=== PATIENT | male | born 1960 ===

== ENCOUNTER 2018-03-08 12:20 | Emergency (ER) | payer OTHER, SELFPAY ==
[2018-03-08 12:34] VITALS: BP 136/82; PULSE 101; RESP 19; TEMP 37.1; O2SAT 95; BMI 37.3
--- NOTE | 2018-03-08 12:36 | ED_ITS ---
HPI - Arrhythmia/Palpitations <MAYA Case - Last Filed: 03/08/18 22:25> General Chief Complaint: Arrhythmia/Palpitations Stated Complaint: THINKS IN AFIB Time Seen by Provider: 03/08/18 12:36 Source: patient Mode of arrival: ambulatory Limitations: no limitations History of Present Illness HPI narrative: 57-year-old male with history of a fib and former smoker here for complaint of having sensation of being in AFib earlier today. He denies any chest pain or shortness of breath. He states he did feel little lightheaded at that time frame. He states that his symptoms have resolved since coming to the emergency room. He denies any other concerns or complaints at this time. He states that he was using Valsalva maneuvers to try and relieve his AFib. he states he feels much better at this time he does hours ago home at this time. Related Data Home Medications Medication Instructions Recorded Confirmed ALBUTEROL SULFATE (PROAIR HFA) puff INH BID #0 06/27/11 montelukast [Singulair] QDAY #0 02/10/16 pravastatin QDAY #0 02/10/16 oxymetazoline [Afrin 1 spray INTRANASAL Q12HP PRN #0 07/30/17 (oxymetazoline)] tamsulosin [Flomax] 0.4 mg PO QDAY #0 07/30/17 testosterone cypionate 50 mg IM #0 07/30/17 [Depo-Testosterone] Previous Rx's Medication Instructions Recorded aspirin 81 mg PO BID #60 08/13/17 hydroxyzine pamoate [Vistaril] 25 mg PO Q4HP PRN #60 cap 08/13/17 oxycodone 5 mg PO Q4HP PRN #60 tab 08/13/17 Allergies Allergy/AdvReac Type Severity Reaction Status Date / Time carrot Allergy Severe RAW Unverified 09/26/17 12:59 CARROTS - BLANCED IS O.K. - THROAT SWELLING etodolac [ETODOLAC] AdvReac Mild GI UPSET Unverified 09/26/17 12:59 DRIED RIGOBERTO Allergy Unknown Uncoded 09/26/17 12:59 GOKUL FRUIT Allergy Unknown Uncoded 09/26/17 12:59 Review of Systems <MAYA Case - Last Filed: 03/08/18 22:25> Constitutional Denies chills, Denies fatigue, Denies fever(s), Denies lethargy and Denies weakness Eyes Denies change in vision, Denies eye discharge, Denies irritation and Denies loss of vision ENT Ears, Nose, Mouth, and Throat: Denies change in voice, Denies neck pain and Denies sore throat Cardiovascular Denies dyspnea and Denies dyspnea on exertion Comments: Feels like he was in AFib earlier today Respiratory Denies cough, Denies dyspnea, Denies dyspnea on exertion and Denies wheezing Gastrointestinal Gastrointestinal: Denies abdominal pain, Denies change in bowel habits, Denies diarrhea, Denies nausea and Denies vomiting Genitourinary Denies hematuria, Denies flank pain, Denies urinary incontinence and Denies urinary urgency Musculoskeletal Denies neck pain Integumentary/Breasts Denies pruritus, Denies erythema, Denies rash and Denies wounds Neurologic Denies confusion, Denies loss of vision and Denies weakness Psychiatric Denies anxiety, Denies confusion, Denies depression, Denies homicidal ideation and Denies suicidal ideation Endocrine Denies fatigue and Denies flushing Hematologic/Lymphatic Denies easy bruising Allergic/Immunologic Denies wheezing Exam <MAYA Case - Last Filed: 03/08/18 22:25> Initial Vital Signs Initial Vital Signs: Vital Signs Temperature 98.8 F 03/08/18 12:34 Pulse Rate 101 H 03/08/18 12:34 Respiratory Rate 19 03/08/18 12:34 Blood Pressure 136/82 03/08/18 12:34 Pulse Oximetry 95 03/08/18 12:34 Const General: cooperative and well developed Nutritional Appearance: well nourished Orientation: alert, awake, oriented x3 and not confused [facility] Mouth: oral mucosae normal and oropharynx normal Eyes Conjunctivae: conjunctivae normal Sclera: sclerae normal Pupils: PERRL EOM: EOM intact bilaterally Resp Effort & Inspection: normal respiratory effort, able to speak in complete sentences, no respiratory distress and no use of accessory muscles Auscultation: clear to auscultation bilaterally, no rales, no rhonchi and no wheezes Cardio Rate: regular rate Rhythm: regular rhythm Heart Sounds: no click, no gallops, no murmurs and no rubs Pulses: normal peripheral pulses Skin General: no rashes or lesions noted, No jaundice and No petechiae Neuro General: alert, oriented x3, gait normal and no focal motor deficits Speech: speech normal <Bob Bejarano DO - Last Filed: 03/09/18 07:16> Initial Vital Signs Initial Vital Signs: Vital Signs Temperature 98.8 F 03/08/18 12:34 Pulse Rate 101 H 03/08/18 12:34 Respiratory Rate 19 03/08/18 12:34 Blood Pressure 136/82 03/08/18 12:34 Pulse Oximetry 95 03/08/18 12:34 Course <MAYA Case - Last Filed: 03/08/18 22:25> Vital Signs - 8 hr 03/08/18 12:34 Temperature 98.8 F Pulse Rate 101 H Respiratory Rate 19 Blood Pressure 136/82 Pulse Oximetry 95 <Bob Bejarano DO - Last Filed: 03/09/18 07:16> Vital Signs - 8 hr 03/08/18 12:34 Temperature 98.8 F Pulse Rate 101 H Respiratory Rate 19 Blood Pressure 136/82 Pulse Oximetry 95 MDM - Arrhythmia/Palpitations <MAYA Case - Last Filed: 03/08/18 22:25> ECG Data Interpretation: EKG shows sinus rhythm with no ST elevation or depression. CT does show right bundle branch block. Ventricular rate of 95. Pr interval of 179. QRS duration of 158. QT of 375. EKG is consistent with prior EKG dated 07/16/2017 [facility] Narrative Medical decision making narrative: patient states he is feeling much better right now and has no symptoms. He does not desire to stay in the emergency room. Offered workup consisting of laboratories and chest x-ray. Patient States he does not desire to have workup at this time and would like to leave. Recommended obtaining workup to ensure there are no other complications. Patient denied. patient is encouraged to follow up with primary care provider soon for re-evaluation. Discussed him returning to the emergency room for any return of symptoms or worsening symptoms. Patient agreed. Discharge Plan Departure Patient Disposition: Left Against Medical Advice Clinical Impression: Heart palpitations Discharge Date/Time: 03/08/18 13:19 Interventions: ED Discharge Assessment Last Done: 03/08/18 13:18 Instructions: DI for Atrial Fibrillation Activity Restrictions/Additional Instructions: EKG in the emergency room today is consistent with prior EKGs. No AFib is seen. Follow up with her primary care provider in the next couple days for re- evaluation. For any return of symptoms or worsening symptoms return to the emergency room. Prescriptions: No Action ALBUTEROL SULFATE (PROAIR HFA) INH BID Qty: 0 RF: 0 pravastatin 40 MG tablet QDAY Qty: 0 RF: 0 montelukast [Singulair] 10 MG tablet QDAY Qty: 0 RF: 0 tamsulosin [Flomax] 0.4 MG capsule,extended release 24hr 0.4 mg PO QDAY Qty: 0 RF: 0 testosterone cypionate [Depo-Testosterone] 100 MG/1 ML oil 50 mg IM Qty: 0 RF: 0 oxymetazoline [Afrin (oxymetazoline)] 0.05 % spray,non-aerosol 1 spray Intranasal Q12HP PRNQty: 0 RF: 0 aspirin 81 MG tablet,delayed release (DR/EC) 81 mg PO BID Qty: 60 RF: 0 oxycodone 5 MG tablet 5 mg PO Q4HP PRNQty: 60 RF: 0 hydroxyzine pamoate [Vistaril] 25 MG capsule 25 mg PO Q4HP PRNQty: 60 RF: 0 Referrals: Fermin Bullock MD [Primary Care Provider] - Stand Alone Forms: Against Medical Advice <Bob Bejarano DO - Last Filed: 03/09/18 07:16> Cosign ED Attending Miesha Attestation: I was immediately available in the department for consultation. Documentation has been reviewed. I agree with assessment and plan.
[2018-03-08 13:18] VITALS: BP 112/69; PULSE 102; RESP 17; O2SAT 96
== END 2018-03-08 13:19 | disposition left against medical advice (07) ==
PROVIDERS: Emergency Provider Nurse Practitioner Family; Family Provider Family Medicine; PCP Family Medicine
DX: R00.2 Palpitations (principal)
CPT/HCPCS: 93005; 99282; 99283

== ENCOUNTER → 2019-03-07 15:07 | Outpatient (CLI) | payer OTHER, SELFPAY ==
--- NOTE | 2019-03-07 | DI.CT.S_ITS ---
PROCEDURE: CT CHEST W CON INDICATIONS: Chronic sinusitis, unspecified Cough TECHNIQUE: After the administration of intravenous contrast, 5 mm thick sections acquired from the pulmonary apices to the posterior costophrenic angles. 1 mm axial lung, 5 mm thick coronal and sagittal reformats and 7 mm axial MIP were acquired. For radiation dose reduction, the following was used: automated exposure control, adjustment of mA and/or kV according to patient size. COMPARISON: [facility], CT, PE STUDY (CTA CHEST), 04/05/2009, 15:14. [facility], CT, ABDOMEN/PELVIS WITH CONTRAST, 10/10/2017, 16:31. FINDINGS: Image quality: Excellent. Lungs and pleura: No acute air space opacities. There is mild lung scarring at the right midlung in the area of prior documented pneumonia from 04/05/09. No active pneumonia is currently present. No pleural effusions or pneumothorax. Central and peripheral airways are patent and normal in caliber. Mediastinum: Heart size is normal. No pericardial effusion. No mediastinal or hilar adenopathy by size criteria. Thoracic aorta and central pulmonary arteries are normal in size. Esophagus is normal in caliber. No hiatal hernia. Bones and chest wall: No suspicious bony lesions. No vertebral body compression fractures. No axillary or supraclavicular adenopathy by size criteria. Thyroid gland may contain a 4 mm radiodensity within the right thyroid lobe laterally. Abdomen: Visualized upper abdominal solid organs appear normal. Upper abdominal bowel loops are normal in caliber. IMPRESSION: Mild lung scarring in an area of prior pneumonia from March 2009 this is located within the lateral segment right middle lobe. No lung mass lesion, endobronchial inflammation or mass, or active pneumonia is found. Overall, a definite source of cough is not seen. Dictated by: Denton Diaz M.D. on 03/07/2019 at 16:51 Approved by: Denton Diaz M.D. on 03/07/2019 at 16:56
--- NOTE | 2019-03-07 | DI.CT.S_ITS ---
PROCEDURE: CT SINUS SCREEN WO CON INDICATIONS: Chronic sinusitis, unspecified Cough TECHNIQUE: Noncontrast 3.0 mm axial images acquired from the frontal sinuses to the mid-sella, with coronal and sagittal reformats. For radiation dose reduction, the following was used: automated exposure control, adjustment of mA and/or kV according to patient size. COMPARISON: None. FINDINGS: Image quality: There is moderate rightward Maxillary Sinuses: No bony remodeling or destruction. Sinuses are clear. Ethmoid Air Cells: No bony remodeling or destruction. Sinuses are clear. Sphenoid Sinuses: No bony remodeling or destruction. Sinuses are clear. Frontal Sinuses: No bony remodeling or destruction. Sinuses are clear. Ostiomeatal Complexes: Ostiomeatal complexes are patent, yet they are constitutionally narrowed with bilateral infraorbital air cells are. Miscellaneous: Visualized intra-orbital contents are normal. No dean bullosa or paradoxical turbinate curvature. There is moderate leftward nasal septal deviation. IMPRESSION: No significant active paranasal sinus disease is seen. Moderate leftward nasal septal deviation. Narrowed ostiomeatal complexes. Dictated by: Zackery Dc M.D. on 03/07/2019 at 16:11 Approved by: Zackery Dc M.D. on 03/07/2019 at 16:11
== END ==
PROVIDERS: Family Provider Family Medicine; PCP Family Medicine; Visit Provider Allergy & Immunology
DX: J32.9 Chronic sinusitis, unspecified (principal); R05 Cough; J34.2 Deviated nasal septum; J98.4 Other disorders of lung
CPT/HCPCS: 70486; 71260

== ENCOUNTER 2019-12-11 15:21 | Emergency (ER) | payer BC, SELFPAY ==
[2019-12-11 15:26] VITALS: BP 111/78; PULSE 105; RESP 18; TEMP 35.8; O2SAT 96; BMI 41.8
--- NOTE | 2019-12-11 15:31 | DI.RAD.S_ITS ---
PROCEDURE: XR CHEST 1V INDICATIONS: chest pain TECHNIQUE: One view of the chest was acquired. COMPARISON: [facility], , CHEST 2 VIEW, 09/18/2017, 16:06. FINDINGS: Surgical changes and devices: None. Lungs and pleura: Lungs are clear. No pleural effusions or pneumothorax. Mediastinum: Mediastinal contours appear normal. Heart size is normal. Bones and chest wall: No suspicious bony lesions. Overlying soft tissues appear unremarkable. IMPRESSION: No acute pulmonary process. Dictated by: Ashlee Stallings M.D. on 12/11/2019 at 16:10 Approved by: Ashlee Stallings M.D. on 12/11/2019 at 16:10
--- NOTE | 2019-12-11 16:00 | PC.NURSE ---
Pt refused IV
--- NOTE | 2019-12-11 17:06 | ED_ITS ---
HPI - Arrhythmia/Palpitations General Chief Complaint: Arrhythmia/Palpitations Stated Complaint: states AFIB about an hour Time Seen by Provider: 12/11/19 16:53 Source: patient Mode of arrival: Ambulatory History of Present Illness HPI narrative: Patient is a 59 year old male with history of atrial fibrillation and asthma presenting with heart palpitations. He has paroxysmal AFib he has had episodes of it in the past he is usually able to get himself out of it by taking his inhaler and holding his breath however did not work this time any seem to be in it for little bit longer. He was actually outside painting a house in the heat and drinking coffee he thinks he is just a little dehydrated. He is currently feeling much better and in normal sinus rhythm. He denies any chest pain dizziness or lightheadedness. He now actually has been waiting for some time before being evaluated and does not want any blood work. MD complaint: rapid heart beat Related Data Home Medications Medication Instructions Recorded Confirmed ALBUTEROL SULFATE (PROAIR HFA) puff INH BID #0 06/27/11 montelukast [Singulair] QDAY #0 02/10/16 pravastatin QDAY #0 02/10/16 oxymetazoline [Afrin 1 spray INTRANASAL Q12HP PRN #0 07/30/17 (oxymetazoline)] tamsulosin [Flomax] 0.4 mg PO QDAY #0 07/30/17 testosterone cypionate 50 mg IM #0 07/30/17 [Depo-Testosterone] Previous Rx's Medication Instructions Recorded aspirin 81 mg PO BID #60 08/13/17 hydroxyzine pamoate [Vistaril] 25 mg PO Q4HP PRN #60 cap 08/13/17 oxycodone 5 mg PO Q4HP PRN #60 tab 08/13/17 Allergies Allergy/AdvReac Type Severity Reaction Status Date / Time carrot Allergy Severe RAW Unverified 12/11/19 15:30 CARROTS - BLANCED IS O.K. - THROAT SWELLING ciprofloxacin [From Cipro] Allergy Severe Gastrointestinal Verified 12/11/19 15:30 Upset etodolac [ETODOLAC] AdvReac Mild GI UPSET Unverified 12/11/19 15:30 DRIED RIGOBERTO Allergy Unknown Uncoded 12/11/19 15:30 GOKUL FRUIT Allergy Unknown Uncoded 12/11/19 15:30 Review of Systems Review of Systems Narrative: GENERAL: Denies chills, fatigue, malaise, fever, sweats, travel HEENT: Denies sinus pain, ear pain, sore throat, difficulty swallowing, neck pain RESPIRATORY: Denies dyspnea, cough, wheezing, hemoptysis, sputum. CARDIOVASCULAR: See HPI GASTROINTESTINAL: Denies nausea, vomiting, abdominal pain, diarrhea, constipation, melena. : Denies dysuria, frequency, incontinence, hematuria, urinary retention, flank pain. MUSCULOSKELETAL: Denies weakness, joint pain, or bony pain SKIN: No rash, no erythema, no pruritus NEUROLOGIC: Denies weakness, dizziness, headache, numbness, change in speech, confusion PSYCHIATRIC: No concerning psychosocial issues. 12 point review of systems is negative except for those stated above and HPI Patient History Surgical History History of knee replacement Status post knee surgery Social History Smoking Status: Former smoker Smoking Status: Former smoker alcohol intake frequency: a few times a month Substance Use Type: does not use Exam Initial Vital Signs Initial Vital Signs: Vital Signs Temperature 96.4 F L 12/11/19 15:26 Pulse Rate 105 H 12/11/19 15:26 Respiratory Rate 18 12/11/19 15:26 Blood Pressure 111/78 12/11/19 15:26 Pulse Oximetry 96 12/11/19 15:26 GENERAL: Overweight well-appearing male and in no acute distress. HEENT: Head atraumatic,EOMI, pupils reactive, face symmetric, moist mucous membranes CARDIOVASCULAR: Regular rate and rhythm without murmurs, rubs or gallops. RESPIRATORY: Breath sounds equal bilaterally, no wheezes rales or rhonchi. ABDOMEN: Soft, nontender. Normoactive bowel sounds all 4 quadrants. No guarding or rebound. EXTREMITIES: Normal range of motion, no clubbing or edema. Neurovascularly intact NEUROLOGICAL: Alert and oriented x4.Normal gait and speech. Cranial nerves II through XII grossly intact. SKIN: Warm, dry, no laceration, no petechiae, no rashes or lesions. Course Orders Ordered: ED Orders 12/11/19 15:31 XR chest 1V Stat EKG-12 Lead Stat Vital Signs Vital signs: Vital Signs - 8 hr 12/11/19 15:26 12/11/19 17:26 Temperature 96.4 F L Pulse Rate 105 H 106 H Respiratory Rate 18 12 Blood Pressure 111/78 128/88 Pulse Oximetry 96 96 [facility] - Arrhythmia/Palpitations Imaging Data Chest x-ray: Radiologist's Impresson: PROCEDURE: XR CHEST 1V INDICATIONS: chest pain TECHNIQUE: One view of the chest was acquired. COMPARISON: [facility], CHEST 2 VIEW, 09/18/2017, 16:06. FINDINGS: Surgical changes and devices: None. Lungs and pleura: Lungs are clear. No pleural effusions or pneumothorax. Mediastinum: Mediastinal contours appear normal. Heart size is normal. Bones and chest wall: No suspicious bony lesions. Overlying soft tissues appear unremarkable. IMPRESSION: No acute pulmonary process. Dictated by: Ashlee Stallings M.D. on 12/11/2019 at 16:10 ECG Data Attestation: I personally reviewed and interpreted this ECG as follows: Prior ECG tracings: available for review Interpretation: Normal sinus rhythm rate 103 p.r. interval 1-[address] elevation or depression similar to previous EKG Right bundle branch block noted MDM Narrative Medical decision making narrative: Patient is refusing blood work. He is in normal sinus rhythm he feels better. His chest x-ray is also reassuring. He does not want blood work or to wait any longer. He agrees to return if his symptoms return or worsen. Discharge Plan Departure Patient Disposition: Home Clinical Impression: Atrial fibrillation Qualifiers: Atrial fibrillation type: paroxysmal Qualified Code(s): I48.0 - Paroxysmal atrial fibrillation Discharge Date/Time: 12/11/19 17:26 Instructions: DI for Atrial Fibrillation Activity Restrictions/Additional Instructions: *You have been diagnosed with atrial fibrillation *What to do: Be sure to hydrate and drink plenty of fluids *Continue to take medications as directed *Follow up with your primary care provider in 2-3 days *Return to ER if you should have increasing heart palpitations dizziness chest pain shortness of breath or any new, worsening or concerning symptoms Prescriptions: No Action ALBUTEROL SULFATE (PROAIR HFA) INH BID Qty: 0 RF: 0 pravastatin 40 MG tablet QDAY Qty: 0 RF: 0 montelukast [Singulair] 10 MG tablet QDAY Qty: 0 RF: 0 tamsulosin [Flomax] 0.4 MG capsule,extended release 24hr 0.4 mg PO QDAY Qty: 0 RF: 0 testosterone cypionate [Depo-Testosterone] 100 MG/1 ML oil 50 mg IM Qty: 0 RF: 0 oxymetazoline [Afrin (oxymetazoline)] 0.05 % spray,non-aerosol 1 spray Intranasal Q12HP PRNQty: 0 RF: 0 aspirin 81 MG tablet,delayed release (DR/EC) 81 mg PO BID Qty: 60 RF: 0 oxycodone 5 MG tablet 5 mg PO Q4HP PRNQty: 60 RF: 0 hydroxyzine pamoate [Vistaril] 25 MG capsule 25 mg PO Q4HP PRNQty: 60 RF: 0 Referrals: Fermin Bullock MD [Primary Care Provider] -
--- NOTE | 2019-12-11 17:24 | PC.NURSE ---
patient reports he was excerting himself outside painting when he bent over and began to feel his heart beat going rapidly. Rate 160-170 per phone. Patient tried all his normal tricks at home to convert himself which normally work but did not this time. Patient arrives denying chest pain or SOB. Feels normal now.
[2019-12-11 17:26] VITALS: BP 128/88; PULSE 106; RESP 12; O2SAT 96
== END 2019-12-11 17:26 | disposition home or self-care (01) ==
PROVIDERS: Emergency Provider Emergency Medicine; Family Provider Family Medicine; PCP Family Medicine
DX: I48.0 Paroxysmal atrial fibrillation (principal)
CPT/HCPCS: 71045; 93005; 99282; 99284

== ENCOUNTER → 2020-08-16 15:40 | Outpatient (CLI) | payer BC, SELFPAY ==
--- NOTE | 2020-09-07 08:31 | PM.CARDMON.1 ---
Bundle Packer Report Referral & Results Date Patient Seen: 08/16/20 Requesting provider: Fermin Bullock Indication: Arrhythmia Duration of monitoring (days): 10 Diary information: There were 3 patient triggered events and 3 patient diary entries Patient triggered events were associated with (within 45 seconds) sinus rhythm, PVCs, PACs, ventricular bigeminy, and an ectopic atrial rhythm Patient diary events were associated with (within 45 seconds) sinus rhythm, PACs, PVCs, and an ectopic atrial rhythm Data: Minimum heart rate identified was 40 beats per minute at 04:36 on 08/17/2020 Maximum sinus heart rate was 115 beats per minute at 19:02 on 08/20/2020 Maximum overall heart rate was 184 beats per minute at 23:34 on 08/20/2020 during a 4 beat run of nonsustained ventricular tachycardia 1.7% of identified beats were supraventricular ectopic in origin which would classify them as occasional Approximately 5.3% of identified beats were ventricular ectopic in origin which would classify them as frequent. An additional 1.3% of identified ventricular ectopy came as couplets There were 2 runs of nonsustained polymorphic ventricular tachycardia with the fastest and longest run noted above at 4 beats at a rate of 184 beats per minute. There were 2 runs of SVT the longest being 6 beats Ectopic atrial rhythm was also identified Impression: Patient with very rare very brief runs of SVT Patient with very rare runs of nonsustained polymorphic ventricular tachycardia Patient with frequent PVCs and occasional ventricular couplets as well as occasional PACs Clinical correlation suggested
== END ==
PROVIDERS: Family Provider Family Medicine; PCP Family Medicine; Referring Provider Family Medicine; Visit Provider Family Medicine
DX: I49.9 Cardiac arrhythmia, unspecified (principal)
CPT/HCPCS: 93242; 93244

== ENCOUNTER → 2020-09-01 13:39 | Outpatient (CLI) | payer BC, SELFPAY ==
--- NOTE | 2020-09-01 13:44 | DI.ECHO.S_ITS ---
[facility] +---------+ : : [address] : [address] [place] : : : : [id number] : : : : Phone: [phone]+ Echocardiogram Report + + :Name: ANAIS QUIROS Study Date: 09/01/2020 Height: 71 in : :[facility] ReadingLocation: Weight: 295 lb : : Gender: Male BSA: 2.5 m2 : :: 1960 Age: 60 yrs BP: 154/79 mmHg: :Reason For Study: CARDIAC ARRHYTHMIA : :Ordering Physician: EDEN, : :MANUEL Performed By: Cleo Wilson : :Referring: MANUEL HARMON : + + Interpretation Summary The patient was in sinus rhythm with heart rates between 73-87 bpm during the exam. The patient had frequent PVCs during the exam. The patient had frequent PACs during the exam. The left ventricle is normal in size. The ejection fraction is estimated to be 60-65%.There is mild concentric left ventricular hypertrophy. Diastolic parameters suggest a pseudonormalization pattern, consistent with probable elevated filling pressures. The right ventricle is normal in size and function. No significant valvular pathology seen. The ascending aorta is mildly enlarged. Mild atherosclerotic plaque(s) in the aortic arch. Procedure: A two-dimensional transthoracic echocardiogram with color flow and Doppler was performed. The study quality was technically adequate. The patient had an echocardiogram, but there is no comparison study available. The patient had frequent PVCs during the exam. The patient was in sinus rhythm with heart rates between 73-87 bpm during the exam. The patient had frequent PACs during the exam. Left Ventricle: The left ventricle is normal in size. There is mild concentric left ventricular hypertrophy. There is no thrombus. The ejection fraction is estimated to be 60-65%. Septal motion is consistent with conduction abnormality. Diastolic parameters suggest a pseudonormalization pattern, consistent with probable elevated filling pressures. Right Ventricle: The right ventricle is normal in size and function. Atria: The left atrium is mildly dilated. Right atrial size is normal. There is no Doppler evidence for an interatrial shunt. Mitral Valve: There is mild mitral annular calcification. There is no mitral regurgitation noted. Aortic Valve: The aortic valve is trileaflet. The aortic valve opens well. The aortic valve is slightly calcified. There is no aortic valve stenosis. No aortic regurgitation is present. Tricuspid Valve: The tricuspid valve is normal in structure and function. Pulmonary artery pressures cannot be estimated because of the lack of a measurable TR jet velocity but the IVC suggests a CVP of around 8 mmHg. There is a trace or physiologic amount of tricuspid regurgitation. Pulmonic Valve: The pulmonic valve leaflets are thin and pliable; valve motion is normal. There is no pulmonic valvular regurgitation. Great Vessels: The aortic root is borderline dilated. The ascending aorta is mildly enlarged. Mild atherosclerotic plaque(s) in the aortic arch. The IVC is dilated (diameter is greater than 2.1 cm) yet it collapses greater than 50% with a sniff. This suggests a right atrial pressure of 8 mm Hg. Pericardium/ Pleura There is no pericardial effusion. There is no pleural effusion. MMode/2D Measurements & Calculations LVIDd: 5.3 cm LVOT diam: 2.4 cm LVIDs: 3.4 cm Ao root diam: 4.3 cm FS: 36.8 % asc Aorta Diam: 4.0 cm EPSS: 1.4 cm Ao Arch Diam (Prox Trans): 3.3 cm IVSd: 1.2 cm LVPWd: 1.2 cm LV hein. diameter/BSA (cm/m^2): 2.1 LV sys. diameter/BSA (cm/m^2): 1.4 LA A2 area: 29.2 cm2 RA long axis: 5.2 cm LA A4 area: 24.1 cm2 RA area: 16.3 cm2 LA length (vol): 6.2 cm RA vol: 43.4 ml LA vol: 95.9 ml RA : 17.5 ml/m2 LA vol index: 38.6 ml/m2 IVC diam: 2.1 cm RVD1 (basal): 2.8 cm TAPSE: 1.7 cm Doppler Measurements & Calculations Ao V2 max: 181.9 cm/sec LVOT Max Taz: 113.3 cm/sec Ao V2 mean: 115.2 cm/sec LV V1 max P.1 mmHg Ao max P.2 mmHg LV V1 VTI: 23.1 cm Ao mean P.2 mmHg FRANSISCO(I,D): 3.1 cm2 Ao V2 VTI: 34.2 cm FRANSISCO(V,D): 2.9 cm2 sev ratio: 0.68 FRANSISCO indexed to BSA (cm^2/m^2): 1.3 MV E max taz: 105.2 cm/sec PA pr(Accel): 41.3 mmHg Med Peak E' Taz: 6.7 cm/sec E/E' med: 15.6 Lat Peak E' Taz: 10.1 cm/sec E/E' lat: 10.4 E/e' average: 13.0 MV dec time: 0.30 sec SV(LVOT): 106.5 ml Reading Physician:06:58 PM
== END ==
PROVIDERS: Family Provider Family Medicine; PCP Family Medicine; Referring Provider Family Medicine; Visit Provider Family Medicine
DX: I49.9 Cardiac arrhythmia, unspecified (principal)
CPT/HCPCS: 93306

== ENCOUNTER → 2021-11-24 09:08 | Outpatient (CLI) | payer BC, SELFPAY ==
--- NOTE | 2021-11-24 09:14 | DI.CT.S_ITS ---
PROCEDURE: CT ABDOMEN PELVIS W CON INDICATIONS: ventral hernia TECHNIQUE: After the administration of oral and IV contrast, axial sections were acquired from the lung bases to the pubic symphysis. Coronal and sagittal reformats were performed. For radiation dose reduction, the following was used: automated exposure control, adjustment of mA and/or kV according to patient size. COMPARISON: [facility], CT, ABDOMEN/PELVIS WITH CONTRAST, 10/10/2017, 16:31. [facility], CT, ABDOMEN/PELVIS WITH CONTRAST, 11/03/2014, 22:22. FINDINGS: Image quality: Excellent. Lung bases: Unremarkable. Heart: No significant findings. ABDOMEN: Liver: Unremarkable. Gallbladder: Unremarkable. Biliary ducts: Unremarkable. Pancreas: Unremarkable. Spleen: Unremarkable. Adrenal Glands: Unremarkable. Kidneys and Ureters: Unremarkable. Stomach and Bowel: Multiple diverticula are seen in the colon without signs of acute diverticulitis. A short segment of the transverse colon is seen protruding through the abdominal wall defect into the ventral hernia without signs of obstruction. Small bowel loops are unremarkable. Peritoneum: No abnormal intraperitoneal fluid. No free air. Ventral Wall: A paramidline abdominal hernia is seen in the upper abdomen containing fat, trace fluid, and a short segment of transverse colon. The hernia measures approximately 12.1 x 5.6 x 9.5 cm with a neck measuring 3.3 x 3.9 cm. Additional fat containing periumbilical hernia is present. Abdominal Nodes: No retroperitoneal or mesenteric adenopathy by size criteria. Vessels: Aorta and inferior vena cava are normal in size. Mild aortic atherosclerotic calcifications. PELVIS: Pelvic Organs: Unremarkable. Bladder: Unremarkable. Pelvic Nodes: No enlarged lymph nodes. Miscellaneous: Bilateral fat containing inguinal hernias. Bones: Multifocal degenerative changes are seen in the spine. IMPRESSION: 1. Upper abdominal ventral hernia is seen containing a short segment of transverse colon without signs of large bowel obstruction. 2. Small fat containing periumbilical hernia and small bilateral fat containing inguinal hernias are seen. 3. Colonic diverticulosis without signs of acute diverticulitis. Dictated by: Kade Mo M.D. on 11/24/2021 at 12:09 Approved by: Kade Mo M.D. on 11/24/2021 at 12:27
[2021-11-24 10:41] LABS: BUN Creatinine Ratio 18.6 (6-22); Blood Urea Nitrogen 18 mg/dL (9-20); Estimated Glomerular Filt Rate > 60 mL/min (>60)
== END ==
PROVIDERS: Family Provider Family Medicine; PCP Family Medicine; Referring Provider Surgery; Visit Provider Surgery
DX: K43.9 Ventral hernia without obstruction or gangrene (principal); K42.9 Umbilical hernia without obstruction or gangrene; K57.90 Diverticulosis of intestine, part unspecified, without perforation or abscess without bleeding
CPT/HCPCS: 36415; 74177; 82565; 84520; Q9967

== ENCOUNTER → 2021-12-01 09:15 | Outpatient (CLI) | payer BC, SELFPAY ==
--- NOTE | 2021-12-01 | DI.RAD.S_ITS ---
PROCEDURE: XR FOOT LT MIN 3V INDICATIONS: Pain in left ankle and joints of left foot TECHNIQUE: 3 views of the foot were acquired. COMPARISON: [facility], CR, FOOT 2V LEFT, 06/13/2007, 16:01. [facility], CR, XR ANKLE LT MIN 3V, 12/01/2021, 9:12. FINDINGS: Bones: Pes planus. No fractures or dislocations. No suspicious bony lesions. There is severe talonavicular joint degeneration and moderate navicular cuboid joint degeneration. Mild tarsometatarsal, metatarsophalangeal and interphalangeal joint degeneration. Mild calcaneal spurring. There is bipartite medial sesamoid. Soft tissues: No tibiotalar joint effusion. Achilles tendon appears normal. IMPRESSION: 1. Severe degenerative joint disease. 2. Pes planus. Dictated by: Baldo Medina M.D. on 12/01/2021 at 17:23 Approved by: Baldo Medina M.D. on 12/01/2021 at 18:13
--- NOTE | 2021-12-01 | DI.RAD.S_ITS ---
PROCEDURE: XR ANKLE LT MIN 3V INDICATIONS: Pain in left ankle and joints of left foot TECHNIQUE: 3 views of the ankle were acquired. COMPARISON: , , FOOT 3V RIGHT, 02/15/2007, 16:41. , , FOOT 2V LEFT, 06/13/2007, 16:01. , , XR FOOT LT MIN 3V, 12/01/2021, 9:12. FINDINGS: Bones: No fractures or dislocations. Ankle mortise is normally aligned. No suspicious bony lesions. There is severe talonavicular joint degeneration and moderate naviculocuboid joint degeneration. Mild degenerative joint disease at the tibiotalar joint. Mild calcaneal spurring. Soft tissues: No tibiotalar joint effusion. Achilles tendon appears normal. Soft tissue swelling around the ankle. IMPRESSION: 1. Severe degenerative joint disease. 2. Soft tissue swelling. Dictated by: Baldo Medina M.D. on 12/01/2021 at 17:22 Approved by: Baldo Medina M.D. on 12/01/2021 at 18:04
== END ==
PROVIDERS: Family Provider Family Medicine; PCP Family Medicine; Referring Provider Family Medicine; Visit Provider Family Medicine
DX: M19.072 Primary osteoarthritis, left ankle and foot (principal); M25.572 Pain in left ankle and joints of left foot; M79.89 Other specified soft tissue disorders
CPT/HCPCS: 73610; 73630

== ENCOUNTER → 2022-06-21 09:56 | Outpatient (CLI) | payer OTHER, SELFPAY ==
[2022-06-21 13:09] LABS: COVID-19 CEPHEID 4-PLEX PCR Negative (Negative); Influenza A - CEPHEID Flu A NEGATIVE (NEGATIVE); Influenza B - CEPHEID Flu B NEGATIVE (NEGATIVE); Respiratory Syncytial Virus Negative (Negative)
== END ==
PROVIDERS: Family Provider Family Medicine; PCP Family Medicine; Visit Provider Registered Nurse
DX: R05.1 Acute cough (principal)
CPT/HCPCS: 0241U

== ENCOUNTER 2022-07-03 07:47 | Day surgery (SDC) | payer OTHER, SELFPAY ==
--- NOTE | 2022-07-03 08:27 | PM.HP.1 ---
History of Present Illness History of Present Illness Date Patient Seen: 07/03/22 Time Patient Seen: 08:27 Chief complaint: SDC Narrative: History of hyperplastic polyp. History of intermittent rectal bleeding. Patient History Medical History Asthma Fistula Hypertension Surgical History H/O shoulder replacement History of knee replacement Status post knee surgery Family & Social History Family History Father Heart disease Mother Cancer Grandfather Stroke Tobacco & Substance use: Smoking Status Former smoker alcohol intake frequency a few times a month Substance Use Type does not use Meds Home Medications and Allergies Home Medications Medication Instructions Recorded Confirmed Type ALBUTEROL SULFATE (PROAIR HFA) puff INH BID ##0 06/27/11 06/21/22 History pravastatin 40 mg tablet QDAY ##0 02/10/16 06/21/22 History azelastine 205.5 mcg (0.15 %) 2 spray intranasal DAILY 07/08/20 06/21/22 History nasal spray budesonide-formoterol HFA 160 2 puff inhalation BID 07/08/20 06/21/22 History mcg-4.5 mcg/actuation aerosol inhaler (Symbicort) docusate sodium 100 mg capsule 100 mg PO DAILY 07/08/20 06/21/22 History (Stool Softener) loratadine 10 mg tablet (Claritin) 10 mg PO DAILY 07/08/20 06/21/22 History meloxicam 15 mg tablet 15 mg PO DAILY 07/08/20 06/21/22 History olopatadine 0.2 % eye drops drp ophthalmic (eye) 07/08/20 06/21/22 History sildenafil (pulm.hypertension) 20 20 mg PO TID 07/08/20 06/21/22 History mg tablet lisinopril 10 mg tablet 10 mg PO DAILY 03/01/21 06/21/22 History metoprolol succinate 50 mg 50 mg PO DAILY 03/01/21 06/21/22 History tablet,extended release 24 hr Allergies Allergy/AdvReac Type Severity Reaction Status Date / Time carrot Allergy Severe RAW Verified 07/03/22 08:27 CARROTS - BLANCED IS O.K. - THROAT SWELLING ciprofloxacin [From Cipro] Allergy Severe Gastrointestinal Verified 07/03/22 08:27 Upset etodolac [ETODOLAC] AdvReac Mild GI UPSET Verified 07/03/22 08:27 DRIED RIGOBERTO Allergy Unknown Uncoded 07/03/22 08:27 GOKUL FRUIT Allergy Unknown Uncoded 07/03/22 08:27 Review of Systems Review of Systems ROS: Yes All systems reviewed with the patient and are negative except as otherwise documented Exam Const General: cooperative HENMT Head: normal to inspection Eyes General: appearance normal, both eyes and all related structures Neck Neck: normal visual inspection Chest Chest: normal inspection of the chest Resp Effort & Inspection: normal respiratory effort Cardio Rate: regular rate GI Inspection: normal to inspection Skin General: no rashes or lesions noted Neuro General: patient alert and patient awake Extrem General: normal to inspection and no pedal edema Psych Appearance: grossly normal Assessment & Plan Assessment & Plan narrative: 61-year-old history of intermittent rectal bleeding. Updated colonoscopy is pursued today. Time Spent With Patient Critical Care time: I spent a total of [] minutes of critical care time on this patient's care today; this time is exclusive of procedural time.
[2022-07-03 08:32] VITALS: BP 137/80; PULSE 80; RESP 16; TEMP 36.3; O2SAT 96; BMI 41.8
[2022-07-03] MEDS: LACTATED RINGERS 1,000 ML 84 ML IV (08:41)
[2022-07-03 08:52] LABS: COVID19 -Nasal RAPID Negative (Negative)
--- NOTE | 2022-07-03 08:59 | PM.PREOP ---
Pre-operative Note COVID-19 COVID-19 status: Negative Result date/Date tested (Pos, Neg/Pending): 07/03/22 Criteria for continued procedure: Possibility delay results in more complex future surgery or treatment Interval Note History & Physical reviewed/Exam performed by Physician: Yes Changes to H&P: No ASA Class (for procedural sedation): III
--- NOTE | 2022-07-03 09:26 | PM.OP.COLON ---
Operative Date/Time/Diagnoses Date of procedure: 07/03/22 Time of procedure: 09:28 Pre-op diagnosis: Intermittent rectal bleeding Post-op diagnosis: same Procedure & Clinicians Study performed: Colonoscopy Same procedure as scheduled: Yes Indications: Intermittent rectal bleeding Surgeon: Pan Villalta Procedure Notes SCOAP/Timeout: Done Procedure in detail: After the risks and benefits were explained, written and verbal informed consent was obtained. The patient was brought into the procedure room and placed into the left lateral decubitus position. Please see anesthesia notes for sedation details. Digital rectal examination was accomplished. The scope was introduced into the patient and advanced under direct visualization to the cecum as identified by the appendiceal orifice and ileocecal valve. The scope was slowly withdrawn to carefully examine the mucosa for any defects or lesions. Comprehensive imaging was accomplished throughout the rectum including the dentate line. The colon was decompressed, the scope was then removed from the patient who tolerated the procedure well. Bowel prep adequate Adult colonoscope Scope withdrawal time: Greater than 10 minutes Sedation minutes: 22 Specimen(s): none sent Complications: none Impression: There were scattered diverticula in the residual sigmoid. There was evidence of prior end to end anastomosis at about 30 cm in the sigmoid colon. Patient had grade 2 internal nonbleeding hemorrhoids. I did not appreciate any masses or polyps throughout. No colitis. Identification of the cecum was extremely difficult and did not provide classic views. I searched for several minutes in this area for the classic appearance of ileocecal valve and appendiceal orifice. I believe I saw appendiceal orifice but could not quite clearly identify the ICV. We rolled the patient into the supine position. I was a little concerned that I was only at the hepatic flexure but after a fairly exhaustive effort, concluded this was probably the cecum. Endoscopic diagnosis 1. Diverticulosis 2. Prior colorectal anastomosis 3. Grade 2 hemorrhoids 4. Difficult right colon anatomic identification. Post-procedure Plan for aftercare: 1. Repeat colonoscopy 5 years. 2. Continue fiber based bowel regimen for soft regular stools. Disposition: PACU
[2022-07-03 09:30] VITALS: BP 96/68; PULSE 77; RESP 19; TEMP 36.1; O2SAT 95
[2022-07-03 09:35] VITALS: BP 115/75; PULSE 73; RESP 17; O2SAT 95
[2022-07-03 09:40] VITALS: BP 120/78; PULSE 76; RESP 22; O2SAT 94
[2022-07-03 09:45] VITALS: BP 123/75; PULSE 79; RESP 16; O2SAT 98
[2022-07-03 09:52] VITALS: BP 108/80; PULSE 63; RESP 13; TEMP 36.1; O2SAT 99
== END 2022-07-03 10:14 | disposition home or self-care (01) ==
PROVIDERS: Family Provider Family Medicine; PCP Family Medicine; Referring Provider Internal Medicine Gastroenterology; Visit Provider Internal Medicine Gastroenterology
PROC: 0DJD8ZZ Inspection of Lower Intestinal Tract, Via Natural or Artificial Opening Endoscopic (ICD-10-PCS; CPT 45378; principal; 2022-07-03 09:00)
DX: K62.5 Hemorrhage of anus and rectum (principal); Z86.010 Personal history of colon polyps; Z20.822 Contact with and (suspected) exposure to COVID-19; K57.30 Diverticulosis of large intestine without perforation or abscess without bleeding; K64.1 Second degree hemorrhoids
CPT/HCPCS: 45378; 87635; C9803; J2704; J3010

== ENCOUNTER → 2022-09-26 21:11 | Outpatient (CLI) | payer OTHER, SELFPAY ==
--- NOTE | 2022-09-26 | DI.RAD.S_ITS ---
PROCEDURE: XR CHEST 2V INDICATIONS: persistant cough TECHNIQUE: 2 views of the chest were acquired. COMPARISON: [facility], THOYN, XR CHEST 1V, 12/11/2019, 15:49. [facility], THONY, CHEST 2 VIEW, 09/18/2017, 16:06. FINDINGS: Surgical changes and devices: None. Lungs and pleura: Lungs are clear. No pleural effusions or pneumothorax. Mediastinum: Mediastinal contours are normal. Heart size is enlarged. Bones and chest wall: No suspicious bony abnormalities. Soft tissues appear unremarkable. IMPRESSION: No acute cardiopulmonary process. Dictated by: Gary Clarke M.D. on 09/27/2022 at 8:21 Approved by: Gary Clarke M.D. on 09/27/2022 at 8:25
== END ==
PROVIDERS: Family Provider Family Medicine; PCP Family Medicine; Referring Provider Family Medicine; Visit Provider Family Medicine
DX: R05.1 Acute cough (principal)
CPT/HCPCS: 71046

== ENCOUNTER 2022-10-12 22:25 | Emergency (ER) | payer OTHER, SELFPAY ==
[2022-10-12 22:28] VITALS: BP 159/85; PULSE 86; RESP 16; TEMP 36.5; O2SAT 95; BMI 41.8
== END 2022-10-12 23:18 | disposition left against medical advice (07) ==
PROVIDERS: Emergency Provider Emergency Medicine; Family Provider Family Medicine; PCP Family Medicine
CPT/HCPCS: 99281

== ENCOUNTER → 2023-03-27 10:54 | Outpatient (CLI) | payer OTHER, SELFPAY ==
--- NOTE | 2023-03-27 10:57 | DI.CT.S_ITS ---
PROCEDURE: CT ABDOMEN PELVIS W CON INDICATIONS: Incisional hernia without obstruction or gangrene TECHNIQUE: After the administration of oral and IV contrast, axial sections were acquired from the lung bases to the pubic symphysis. Coronal and sagittal reformats were performed. For radiation dose reduction, the following was used: automated exposure control, adjustment of mA and/or kV according to patient size. COMPARISON: [facility], CT, CT ABDOMEN PELVIS W CON, 11/24/2021, 11:17. FINDINGS: Image quality: Excellent. Lung bases: Unremarkable. Heart: No significant findings. ABDOMEN: Liver: Subcentimeter hypoattenuating lesions in segment 2/3 , too small to characterize by CT. Gallbladder: Unremarkable. Biliary ducts: Unremarkable. Pancreas: Unremarkable. Spleen: Unremarkable. Adrenal Glands: Unremarkable. Kidneys and Ureters: Unremarkable. Stomach and Bowel: Contrast within the esophagus, presumably from reflux or esophageal dysmotility. Colonic diverticulosis without evidence of diverticulitis. Prior partial colectomy. Peritoneum: No abnormal intraperitoneal fluid. No free air. Ventral Wall: Right abdominal wall hernia containing nonobstructed sigmoid colon and inflamed fat. The neck measures 4 cm and the sac measures 11.5 x 5.9 x 10.9 cm. Umbilical hernia containing trace fluid, inflamed fat. The neck measures 1.8 cm. The sac measures 4.7 x 4.2 by 4.5 cm. Abdominal Nodes: No retroperitoneal or mesenteric adenopathy by size criteria. Vessels: Aorta and inferior vena cava are normal in size. PELVIS: Pelvic Organs: Unremarkable. Bladder: Unremarkable. Pelvic Nodes: No enlarged lymph nodes. Miscellaneous: Fat within the inguinal canals. Bones: Unremarkable. IMPRESSION: Right abdominal wall hernia containing nonobstructed sigmoid colon and inflamed fat. The neck measures 4 cm and the sac measures 11.5 x 5.9 x 10.9 cm. Umbilical hernia containing trace fluid, inflamed fat. The neck measures 1.8 cm. The sac measures 4.7 x 4.2 by 4.5 cm. Colonic diverticulosis without evidence of diverticulitis. Oral contrast within the distal esophagus, indicating either esophageal dysmotility or reflux. Dictated by: Gary Clarke M.D. on 03/27/2023 at 14:38 Approved by: Gary Clarke M.D. on 03/27/2023 at 14:54
[2023-03-27 11:22] LABS: Estimated Glomerular Filt Rate > 60 mL/min (>60)
== END ==
PROVIDERS: Radiology Diagnostic Radiology; Family Provider Family Medicine; PCP Family Medicine; Referring Provider Surgery; Visit Provider Surgery
DX: K43.2 Incisional hernia without obstruction or gangrene (principal); K43.9 Ventral hernia without obstruction or gangrene; K42.9 Umbilical hernia without obstruction or gangrene; K57.90 Diverticulosis of intestine, part unspecified, without perforation or abscess without bleeding
CPT/HCPCS: 36415; 74177; 82565; Q9967

== ENCOUNTER → 2023-05-17 14:17 | Outpatient (CLI) | payer OTHER, SELFPAY | PROVIDERS: Family Provider Family Medicine; PCP Family Medicine; Referring Provider Family Medicine; Visit Provider Family Medicine | DX: M79.641 Pain in right hand (principal) | CPT/HCPCS: 95885; 95886; 95911 ==

== ENCOUNTER → 2023-06-27 15:01 | Outpatient (CLI) | payer OTHER, SELFPAY ==
--- NOTE | 2023-06-27 | DI.NM.S_ITS ---
PROCEDURE: NM PREETHI PERF SPECT REST & STR Rest and exercise myocardial perfusion SPECT with gated imaging and ejection fraction RADIOPHARMACEUTICAL: 27.5 mCi Tc-99m sestamibi IV at rest and 24.6 mCi Tc-99m sestamibi IV at peak exercise. A [id number] was performed. INDICATIONS: SLOW HEART RATE TECHNIQUE: Radiopharmaceutical was injected at peak stress test, and also at rest. SPECT images were obtained. SPECT myocardial perfusion images were displayed in short axis, horizontal long axis, and vertical long axis views. Gated images were reviewed using [employer] software. COMPARISON: None. CARDIAC STRESS: A standard Khalif treadmill exercise tolerance test was performed by the patient under the supervision of an attending staff. The patient exercised for 5 minutes and 44 seconds; 7.0 METS; functional aerobic impairment (DINESH) is +24%. Hemodynamic data: There is normal blood pressure and heart rate response to exercise stress. Patient achieved 90% of maximum predicted heart rate at peak exercise. Maximum blood pressure 162/70. Symptoms: Patient denied chest pain during exercise. EKG: No diagnostic EKG changes of ischemia; no ectopy. FINDINGS: Raw data: There is good myocardial labeling by radiotracer. No significant motion artifacts. Jcgz-wv-wwqqo ratio is 0.37 (normal is less than 0.38 for sestamibi tracer, and less than 0.50 for thallium tracer). Left ventricle function: Gated images demonstrate normal left ventricle wall thickening. No segmental wall motion abnormality. No transient ischemic dilation; TID is 0.86 (normal less than 1.3). The left ventricle resting end-diastolic volume is 157 mL. Left ventricle stress ejection fraction is 73%; normal values are above 45%. Myocardial perfusion: There is normal distribution of activity in the left and right ventricular myocardium. No fixed or reversible perfusion defects. IMPRESSION: Low risk study. No evidence of exercise-induced ischemia on ECG or SPECT imaging. Increased calculated LVEDV with normal function. Normal hemodynamic response to exercise. Reduced exercise capacity. Dictated by: Bernie Miguel D.O. on 07/02/2023 at 17:10 Approved by: Bernie Miguel D.O. on 07/02/2023 at 17:14
== END ==
LOC: NUCM 15:02
PROVIDERS: Family Provider Family Medicine; PCP Family Medicine; Referring Provider Internal Medicine Cardiovascular Disease; Visit Provider Internal Medicine Cardiovascular Disease
DX: R00.1 Bradycardia, unspecified (principal); I45.2 Bifascicular block; I10 Essential (primary) hypertension
CPT/HCPCS: 78452; 93016; 93017; 93018; A9502

== ENCOUNTER → 2023-11-10 10:49 | Outpatient (CLI) | payer OTHER, SELFPAY ==
--- NOTE | 2023-11-10 10:50 | DI.RAD.S_ITS ---
PROCEDURE: XR CHEST 2V INDICATIONS: Worsening cough TECHNIQUE: 2 views of the chest were acquired. COMPARISON: [facility], CR, XR CHEST 2V, 09/26/2022, 21:19. [facility], CR, XR CHEST 1V, 12/11/2019, 15:49. FINDINGS: Surgical changes and devices: None. Lungs and pleura: Lungs are clear. No pleural effusions or pneumothorax. Peribronchial cuffing. Mediastinum: Mediastinal contours are normal. Heart size is normal. Bones and chest wall: No suspicious bony abnormalities. Soft tissues appear unremarkable. IMPRESSION: Peribronchial cuffing, typically indicating infectious or inflammatory bronchitis. Dictated by: Gary Clarke M.D. on 11/10/2023 at 11:00 Approved by: Gary Clarke M.D. on 11/10/2023 at 11:00
== END ==
PROVIDERS: Family Provider Family Medicine; PCP Family Medicine; Referring Provider Registered Nurse; Visit Provider Registered Nurse
DX: R05.9 Cough, unspecified (principal)
CPT/HCPCS: 71046

== ENCOUNTER → 2024-04-22 08:29 | Outpatient (CLI) | payer OTHER, SELFPAY ==
--- NOTE | 2024-04-22 08:30 | DI.US.S_ITS ---
PROCEDURE: US EXTREMITY NONVASC LOWER LT INDICATIONS: SOFT TISSUE MASS LEFT THIGH TECHNIQUE: Real-time scanning was performed of the left thigh, with image documentation. COMPARISON: None. FINDINGS: Focused ultrasound examination of medial left mid thigh at patient's reported area of palpable lump shows a solid-appearing slightly lobulated hypoechoic structure within subcutaneous soft tissue and measures up to 2 x 1.5 x 1 cm in size. Internal vascular. The structure is not compressible. IMPRESSION: 2 x 1.5 x 1 cm solid nodule in left medial mid thigh subcutaneous soft tissue and is suggestive of soft tissue neoplasm of indeterminate nature. Consider biopsy or excision for more definitive diagnosis. Dictated by: Shiraz Escobedo M.D. on 04/22/2024 at 14:29 Approved by: Shiraz Escobedo M.D. on 04/22/2024 at 14:36
== END ==
LOC: US 08:30
PROVIDERS: Family Provider Family Medicine; PCP Family Medicine; Referring Provider Family Medicine; Visit Provider Family Medicine
DX: R22.42 Localized swelling, mass and lump, left lower limb (principal)
CPT/HCPCS: 76882

== ENCOUNTER → 2024-06-27 17:16 | Outpatient (CLI) | payer OTHER, SELFPAY ==
--- NOTE | 2024-06-27 18:39 | DI.MRI.S_ITS ---
PROCEDURE: MR FEMUR LT WO/W CON INDICATIONS: MASS OF LEFT THIGH TECHNIQUE: Noncontrast coronal T1 spin echo and STIR, sagittal T1 spin echo with fat saturation and STIR, axial T1 spin echo and T2 fast spin echo with fat saturation. After the administration of contrast, axial/sagittal/coronal T1 spin echo with fat saturation through the left femur. COMPARISON: [facility], US, US EXTREMITY NONVASC LOWER LT, 04/22/2024, 8:42. FINDINGS: Image quality: Excellent. Bones: Small T2 hyperintensity in the left proximal femur diaphysis (04:24), nonspecific. No acute fracture. Soft tissues: Corresponding to the pain marker, there is a 1.5 cm T2 hyperintense, minimal to no enhancing lesion in the subcutaneous fat of the medial left distal thigh. Somewhat limited evaluation given T1 fat set noncontrast images were not obtained. No left inguinal lymphadenopathy. Muscles are normal in signal. IMPRESSION: 1.5 cm T2 hyperintense, nonenhancing to minimal enhancing lesion in the subcutaneous fat of the medial left distal thigh, indeterminate. Recommend further evaluation with tissue sampling. Dictated by: Keira Rosario M.D. on 06/30/2024 at 16:28 Approved by: Keira Rosario M.D. on 06/30/2024 at 16:39
== END ==
PROVIDERS: Family Provider Family Medicine; PCP Family Medicine; Referring Provider Family Medicine; Visit Provider Family Medicine
DX: R22.42 Localized swelling, mass and lump, left lower limb (principal)
CPT/HCPCS: 73720; A9579

== ENCOUNTER 2024-08-12 10:42 | Day surgery (SDC) | payer OTHER, SELFPAY ==
[2024-08-08 08:55] VITALS: BMI 38.4
--- NOTE | 2024-08-12 | PATH_ITS ---
[facility] Accession Number: [id number] No. of containers..01 Tissue . 01 Material submitted: . thigh - LEFT THIGH MASS . 01 Diagnosis: SOFT TISSUE, LEFT THIGH MASS, EXCISION: Benign vascular lesion consistent with hemangioma. MRV 08/19/2024 1709 Local . 01 Comment: This case has also been reviewed by Dr. Shandra Nevarez, dermatopathologist, who concurs with the diagnosis. . 01 Electronically signed: . Jerilyn Boyle MD, Pathologist NPI- [id number] . 01 Gross description: . Received in formalin with two patient identifiers and left thigh mass, are multiple mckeon and yellow soft tissue fragments with no skin grossly identified. The largest fragment measures 2.4 x 1.7 x 1.3 cm. Sectioned to reveal a mckeon to yellow smooth and soft cut surface with veterans contact representative sections submitted in A1. All true fragments were submitted in cassette A2 and the remaining fragments were filtered and submitted in cassette A3. (KB:[id number]) (KB:[id number]) /MRV 08/16/2024 1256 Local . 01 Microscopic: . The lesional cells are CD31 and ERG positive. HHV8 immunostain is negative. Controls stain appropriately. . * This test was developed and the performance characteristics were validated by [employer]. It has not been cleared or approved by the U.S. Food and Drug Administration. . 01 Pathologist provided ICD-10: D18.01 . 01 CPT . 250073, T62652, C90414 Specimen Comment: A courtesy copy of this report has been sent to [phone] Performed at: [address] [address], [place], [place] [id number] MD Remigio Trivedi MD Phone: [phone]
[2024-08-12 11:07] VITALS: BP 123/71; PULSE 80; RESP 17; TEMP 36.5; O2SAT 97; BMI 38.4
[2024-08-12] MEDS: LACTATED RINGERS 1,000 ML 42 ML IV (11:16)
[2024-08-12] MEDS: ACETAMINOPHEN 325 MG TABLET 975 MG PO (11:18)
--- NOTE | 2024-08-12 11:35 | PM.PREOP ---
Pre-operative Note COVID-19 COVID-19 status: Not tested Interval Note History & Physical reviewed/Exam performed by Physician: Yes Changes to H&P: No ASA Class (for procedural sedation): II
[2024-08-12] MEDS: CEFAZOLIN 2 GM/100 ML PREMIX 100 ML IV (13:05)
--- NOTE | 2024-08-12 13:11 | SUR.OPER ---
Supine on padded OR bed, head on pillow, arms secured on padded arm boards at <90 degrees abduction, legs uncrossed, safety belt at abdomen, tape over blanket over lower legs, blankets for support to operative leg.
[2024-08-12] MEDS: BUPIVACAINE 0.25% W/ EPI 30 ML VIAL 23 ML INJ (13:18)
[2024-08-12 13:29] VITALS: BP 98/61; PULSE 78; RESP 17; TEMP 36.3; O2SAT 95
[2024-08-12 13:34] VITALS: BP 111/65; PULSE 81; RESP 18; O2SAT 96
[2024-08-12 13:39] VITALS: BP 110/66; PULSE 77; RESP 18; O2SAT 96
--- NOTE | 2024-08-12 13:42 | PM.OP.1 ---
Operative Date/Time/Diagnoses Date of procedure: 08/12/24 Time of procedure: 13:42 Pre-op diagnosis: Left leg mass Post-op diagnosis: same Procedure & Clinicians Procedure: Excisional biopsy of left leg mass Same procedure as scheduled: Yes Surgeon: Skip Castaneda Supervisor Compounding And Finishing: Rickey Trujillo Anesthesia Type: MAC +/- Operative Notes Procedure in detail: Patient was brought to the operating room, placed on the table in the supine position and monitored anesthesia was induced. The left leg was flexed slightly and externally rotated and supported with a bump. The medial thigh was prepped and draped in the usual fashion and a time-out was performed. We injected local over the mass which had been marked in the preop area. We made a 5 cm axial incision over the mass. We dissected down into the subcutaneous adipose tissue. There was possibly a decompressed cyst versus lipoma in the tissue that was excised. We palpated around the edges of the wound and no other masses were felt. We then closed the wound in layers using multiple interrupted 3-0 Vicryl dermal sutures followed by a running 4-0 Monocryl subcuticular stitch. EBL: 5 mL Specimen: Left thigh mass Rickey QUICK provided assistance with exposure, retraction and closure of incisions. Post-operative Condition: stable Disposition: PACU
[2024-08-12 13:50] VITALS: BP 119/72; PULSE 74; RESP 18; TEMP 36.7; O2SAT 99
== END 2024-08-12 14:10 | disposition home or self-care (01) ==
PROVIDERS: Family Provider Family Medicine; PCP Family Medicine; Referring Provider Surgery; Visit Provider Surgery
PROC: (CPT 27327; principal; 2024-08-12 12:30)
DX: R22.42 Localized swelling, mass and lump, left lower limb (principal)
CPT/HCPCS: 27327; J0690; J1100; J2405; J2704; J3010

== ENCOUNTER → 2024-10-14 10:48 | Outpatient (CLI) | payer OTHER, SELFPAY ==
--- NOTE | 2024-10-14 10:50 | DI.RAD.S_ITS ---
PROCEDURE: XR KNEE LT 3V INDICATIONS: Pain in left knee TECHNIQUE: AP, lateral, and sunrise views of the knee were acquired. COMPARISON: [facility], CR, XR KNEE 1 OR 2 VIEWS LEFT, 04/16/2019, 15:07. FINDINGS: Bones: There is a total knee arthroplasty in place with a revised, long-stem tibial component, unchanged. There are thin lucencies at the cement-bone interface in the medial tibial plateau, similar in appearance to on the prior exam. No fractures or dislocations. No suspicious bony lesions. There is no evidence for significant polyethylene wear. Soft tissues: There is fullness in the suprapatellar recess compatible with an effusion. No suspicious soft tissue calcifications. IMPRESSION: Small joint effusion. Revision type left total knee arthroplasty in place with no significant interval change since April 16, 2019. Dictated by: Fermin Bella M.D. on 10/14/2024 at 11:32 Approved by: Fermin Bella M.D. on 10/14/2024 at 11:39
== END ==
LOC: RAD 10:49
PROVIDERS: Family Provider Family Medicine; PCP Family Medicine; Referring Provider Family Medicine; Visit Provider Family Medicine
DX: M25.562 Pain in left knee (principal); M25.462 Effusion, left knee; Z96.652 Presence of left artificial knee joint
CPT/HCPCS: 73562

== ENCOUNTER → 2025-03-17 08:19 | Outpatient (CLI) | payer OTHER, SELFPAY ==
--- NOTE | 2025-03-17 08:21 | DI.US.S_ITS ---
PROCEDURE: US ABD AORTA ANEURYSM SCREEN INDICATIONS: WELLNESS TECHNIQUE: Real time scanning was performed of the aorta and iliac arteries, with image documentation. COMPARISON: None. FINDINGS: Aorta: Proximal aortic diameter measures 3.2 cm. Mid-aorta measures 2.4 cm. Distal aortic diameter is 1.7 cm. Iliac arteries: Right common iliac artery measures 1.2 cm. Left common iliac artery measures 1.0 cm. IMPRESSION: Proximal aortic aneurysm measuring 3.2 centimeter. Recommend 3 year follow-up per consensus guidelines. Dictated by: Gary Clarke M.D. on 03/17/2025 at 11:31 Approved by: Gary Clarke M.D. on 03/17/2025 at 11:32
== END ==
LOC: US 08:20
PROVIDERS: Family Provider Family Medicine; PCP Family Medicine; Referring Provider Family Medicine; Visit Provider Family Medicine
DX: Z00.00 Encounter for general adult medical examination without abnormal findings (principal); I71.9 Aortic aneurysm of unspecified site, without rupture
CPT/HCPCS: 76706

== ENCOUNTER → 2025-04-13 16:41 | Outpatient (CLI) | payer OTHER, SELFPAY ==
--- NOTE | 2025-04-13 16:44 | DI.RAD.S_ITS ---
PROCEDURE: XR LUMBAR SPINE MIN 4V INDICATIONS: radicular syndrome of rt leg TECHNIQUE: 5 views of the lumbar spine acquired, including flexion and extension views. COMPARISON: None. FINDINGS: Lumbar spine curvature and alignment: 3 mm of L3 anterior subluxation and 3 mm L2 and L1 retrolisthesis due to facet degeneration noted. Moderate dextroscoliosis lower thoracic and upper lumbar spine Bones: Mild chronic wedging with endplate irregularity T7 through T12 is likely due to chronic Scheuermann's disease from disc degeneration. Disc spaces: Severe T8-9 through through L3-4, mild L4-5 and L5-S1 degenerative disc disease. Moderate L4-5 and severe L5-S1 degenerative facet disease Soft tissues: No soft tissue swelling, calcification or mass. IMPRESSION: Multilevel degeneration. Mild chronic wedging lower thoracic vertebral bodies likely due to chronic Scheuermann's disease disc degeneration. Dextroscoliosis Dictated by: Amador Aguilar M.D. on 04/14/2025 at 13:04 Approved by: Amador Aguilar M.D. on 04/14/2025 at 13:07
== END ==
PROVIDERS: Family Provider Family Medicine; PCP Family Medicine; Referring Provider Family Medicine; Visit Provider Family Medicine
DX: M54.10 Radiculopathy, site unspecified (principal); M51.369 Other intervertebral disc degeneration, lumbar region without mention of lumbar back pain or lower extremity pain; M51.379 Other intervertebral disc degeneration, lumbosacral region without mention of lumbar back pain or lower extremity pain; M51.34 Other intervertebral disc degeneration, thoracic region; M47.816 Spondylosis without myelopathy or radiculopathy, lumbar region; M47.817 Spondylosis without myelopathy or radiculopathy, lumbosacral region; M48.54XA Collapsed vertebra, not elsewhere classified, thoracic region, initial encounter for fracture; M41.9 Scoliosis, unspecified
CPT/HCPCS: 72110

== ENCOUNTER → 2025-04-23 06:46 | Outpatient (CLI) | payer OTHER, SELFPAY ==
--- NOTE | 2025-04-23 06:47 | DI.CT.S_ITS ---
PROCEDURE: CT ANKLE LEFT WITHOUT
== END ==
LOC: CT 06:47
PROVIDERS: Family Provider Family Medicine; PCP Family Medicine; Referring Provider Orthopaedic Surgery Foot and Ankle Surgery; Visit Provider Orthopaedic Surgery Foot and Ankle Surgery
DX: M19.072 Primary osteoarthritis, left ankle and foot (principal)
CPT/HCPCS: 73700

== ENCOUNTER → 2025-05-25 10:19 | Outpatient (CLI) | payer OTHER, SELFPAY ==
--- NOTE | 2025-05-25 10:20 | DI.CT.S_ITS ---
PROCEDURE: CT ABDOMEN PELVIS W CON INDICATIONS: Right inguinal hernia TECHNIQUE: After the administration of intravenous contrast, axial sections acquired from the lung bases to the pubic symphysis. Coronal and sagittal reformats were performed. For radiation dose reduction, the following was used: automated exposure control, adjustment of mA and/or kV according to patient size. COMPARISON: [facility], CT, CT ABDOMEN PELVIS W CON, 03/27/2023, 12:29. FINDINGS: Image quality: Diagnostic. Lower Chest: Tiny 2 mm nodular density in lateral left lower lobe unchanged from prior study series 5, image 5. Bilateral lung bases are otherwise clear. Heart size is enlarged, no pericardial effusion. Mild distal esophageal wall thickening and small hiatal hernia. ABDOMEN: Liver: No solid mass. Gallbladder: No radiopaque gallstones or wall thickening. Of Biliary ducts: No biliary dilation. Pancreas: No ductal dilation. Spleen: Size is within normal limits. Adrenal Glands: No adrenal nodules. Kidneys and Ureters: No hydronephrosis. No solid mass. No complex renal cystic lesion which requires follow up. Stomach and Bowel: Postsurgical changes are noted in right lower quadrant from partial bowel resection. Of surgical anastomosis is intact. There is no bowel obstruction. [id number] fecal stasis in the colon is seen. No evidence of acute appendicitis or diverticulitis. No abscess collection. Peritoneum: No abnormal intraperitoneal fluid. No free air. Ventral Wall: Previously described right ventral hernia is no longer present suggestive of interval repair. No significant ventral hernia is seen on the current study. Abdominal Nodes: No retroperitoneal or mesenteric adenopathy by size criteria. Vessels: Aorta and inferior vena cava are normal in size. PELVIS: Pelvic Organs: Unremarkable. Bladder: No bladder wall thickening, accounting for underdistention. Pelvic Nodes: Slightly prominent right inguinal lymph nodes are seen measures up to 1.1 cm in short axis diameter series 2, image 141. Prominent left inguinal lymph node is also noted measures 12 mm in short axis diameter series 2, image 148. Miscellaneous: Small left inguinal hernia containing fat only. No significant right inguinal hernia. Bones: No aggressive osseous abnormality. IMPRESSION: 1. Patient is status post interval right ventral hernia repair. No significant ventral hernia is seen on the current study. 2. Small left inguinal hernia containing fat only. No significant right inguinal hernia. Prominent bilateral inguinal lymph nodes which may be reactive in nature. 3. Postsurgical changes in right lower quadrant abdomen. No bowel obstruction or abnormal bowel wall thickening. No free fluid or free air. No abscess collection. [id number] constipation. 4. Other chronic findings are not significantly changed from previous study. Dictated by: Shiraz Escobedo M.D. on 05/25/2025 at 13:08 Approved by: Shiraz Escobedo M.D. on 05/25/2025 at 13:18
[2025-05-25 11:04] LABS: Estimated Glomerular Filt Rate > 60 mL/min (>60)
== END ==
PROVIDERS: Family Provider Family Medicine; PCP Family Medicine; Referring Provider Family Medicine; Visit Provider Surgery
DX: K40.90 Unilateral inguinal hernia, without obstruction or gangrene, not specified as recurrent (principal); K59.00 Constipation, unspecified; K44.9 Diaphragmatic hernia without obstruction or gangrene; I51.7 Cardiomegaly; Z98.0 Intestinal bypass and anastomosis status
CPT/HCPCS: 36415; 74177; 82565; Q9967

== ENCOUNTER 2025-05-27 07:27 | Day surgery (SDC) | payer OTHER, SELFPAY ==
[2025-05-21 13:16] VITALS: BMI 35.8
[2025-05-27] VITALS (10 sets, daily range): BP systolic 117–130; BP diastolic 61–76; PULSE 70–88; RESP 11–25; TEMP 36.7–36.8; O2SAT 92–98
[2025-05-27] MEDS: LACTATED RINGERS 1,000 ML 42 ML IV ×2 (08:30→13:09)
--- NOTE | 2025-05-27 08:39 | EKG_ITS ---
[address] [address] Test Date: 2025-05-27 Pat Name: Yamil Boyd Department: Room: Gender: Male Resource Development Director: Jen MACHADO : 1960 Requested By: Order Number: [id number] Reading MD: Darvin Hilliard Measurements Intervals [place] Rate: 81 P: 15 WI: 202 QRS: -53 QRSD: 174 T: -7 QT: 416 QTc: 483 Interpretive Statements Sinus rhythm with premature atrial complexes Right bundle branch block Left anterior fascicular block Bifascicular block Septal infarct , age undetermined Electronically Signed On 05-27-2025 14:14:02 PST by Darvin Hilliard
--- NOTE | 2025-05-27 08:40 | SUR.PREOP ---
On auscultation pt noted to have slightly irregular HR; bedside monitor shows irregular rhythm, possible PACs? Possible RBBB? EKG ordered to evaluate rhythm & optimization for surgery today.
[2025-05-27] MEDS: SCOPOLAMINE 1 PATCH TOP (09:05)
--- NOTE | 2025-05-27 09:12 | PM.PREOP ---
Pre-operative Note COVID-19 COVID-19 status: Not tested Interval Note History & Physical reviewed/Exam performed by Physician: Yes Changes to H&P: No ASA Class (for procedural sedation): II
--- NOTE | 2025-05-27 10:16 | SUR.OPER ---
Supine on pink-padded OR bed, head on pillow, arms padded and tucked at sides, legs uncrossed, safety belt at thigh, tape over blanket over lower legs .
--- NOTE | 2025-05-27 12:21 | PM.OP.1 ---
Operative Date/Time/Diagnoses Date of procedure: 05/27/25 Time of procedure: 12:21 Pre-op diagnosis: Right inguinal hernia Post-op diagnosis: same Procedure & Clinicians Procedure: Robotic right inguinal hernia repair with mesh Same procedure(s) as scheduled: Yes Surgeon: Skip Castaneda Assisted?: Yes Sound Technician Supervisor: Rickey Trujillo Anesthesia Type: General Operative Notes Findings: Large indirect right inguinal hernia Applied: none Estimated Blood Loss (mL): 5 Procedure in detail: The patient was given preoperative antibiotics. The patient was brought to the operating room, placed on the table in the supine position with the arms tucked and general anesthesia was induced. The abdomen was prepped and draped in the usual fashion. A time-out was performed. Due to his history of a prior ventral hernia repair with mesh the initial cut down was performed in the right upper quadrant a few fingerbreadths below the right costal margin. Dissection was carried down to the anterior sheath. The anterior sheath was divided with cautery and grasped with a Chloe clamp to elevate the abdominal wall. It appeared that the incision was just lateral to the lateral border of the rectus muscle. The posterior sheath was then grasped between tonsil clamps and sharply divided. A 5 mm laparoscopic port was inserted. The camera was inserted, there was no evidence of any injury from the entry. There was a right indirect inguinal hernia. There was an adhesion of a loop of bowel the abdominal wall in the right upper quadrant a few cm away from the cutdown incision but the rest of the abdomen appeared relatively free of adhesions. 8 mm ports were placed under direct vision in the mid left and mid right abdomen and a 1 cm incision was created just superior to the umbilicus under direct vision.. The patient was positioned in Trendelenburg. The robot was docked. We created right peritoneal flap. The hernia sac was dissected out of the internal ring and the Mukund's ligament was exposed. An extra-large right Bard mesh was brought in and placed over the defect with the medial edge overlapping the pubic symphysis. We then closed the peritoneal flap with a running 3-0 barbed suture. We took one last look around the abdomen and saw no other abnormalities. The suture was removed and accounted for. The robot was undocked. The 8 mm ports were removed under direct vision. The abdomen was desufflated. The 12 mm port was removed. Additional local was injected into the fascia and the fascia of the supraumbilical incision was closed with 2 interrupted 0 Vicryl sutures as well as a single 2-0 nylon stitch. The fascia of the right upper quadrant cutdown incision was closed with 2 interrupted 2-0 nylon sutures. The skin incisions were closed with 4 Monocryl, Steri-Strips and Band-Aids. Rickey QUICK provided assistance with exposure, retraction and closure of incisions. Complications: none Post-operative Condition: stable Disposition: PACU
[2025-05-27] MEDS: ONDANSETRON 4 MG/2 ML INJ IV ×2 (12:35→14:00)
[2025-05-27] MEDS: ACETAMINOPHEN IV 1,000 MG/100 ML VIAL 400 MG IV (12:35)
--- NOTE | 2025-05-27 13:10 | SUR.PHASEI ---
Per Dr Castaneda, patient may experience some scrotal swelling which is normal and should resolve. Notified patient.
== END 2025-05-27 14:28 | disposition home or self-care (01) ==
PROVIDERS: Family Provider Family Medicine; PCP Family Medicine; Referring Provider Family Medicine; Visit Provider Surgery
PROC: 0YQ54ZZ Repair Right Inguinal Region, Percutaneous Endoscopic Approach (ICD-10-PCS; CPT 49650; principal; 2025-05-27 09:15)
DX: K40.90 Unilateral inguinal hernia, without obstruction or gangrene, not specified as recurrent (principal); K66.0 Peritoneal adhesions (postprocedural) (postinfection); Z87.891 Personal history of nicotine dependence
CPT/HCPCS: 49650; 93005; S2900; C1781; J0131; J0330; J0689; J1100; J1171; J2250; J2405; J2704; J3010; J7120